=== PATIENT | male | born 1940 | race Caucasian/White ===

== ENCOUNTER 2016-04-04 09:10 | Inpatient (IN) | payer MEDICARE, BC ==
[2016-04-04] MEDS ORDERED: METHYLPRED SOD SUCC 125 MG/2 ML VIAL ONE (09:39)
[2016-04-04] MEDS ORDERED: DUONEB INH ONE ×2 (09:43)
[2016-04-04] MEDS ORDERED: NEB-ALBUTEROL 2.5 MG/3 ML INH ONE (09:43)
[2016-04-04] MEDS ORDERED: SODIUM CHLORIDE 0.9% 1,000 ML ONE (10:07)
[2016-04-04] MEDS ORDERED: ACETAMINOPHEN 325 MG TAB PO PRN (11:50)
[2016-04-04] MEDS ORDERED: BISACODYL EC 5 MG TAB PO PRN (11:50)
[2016-04-04] MEDS ORDERED: ALU/MAG/SIM 30 ML UDC PO PRN (11:50)
[2016-04-04] MEDS ORDERED: MAG HYDROX 30 ML UDC PO PRN (11:50)
[2016-04-04] MEDS ORDERED: ONDANSETRON 4 MG VIAL IV PRN (11:50)
[2016-04-04] MEDS ORDERED: SALINE FLUSH 10 ML FLUSH PRN (11:50)
[2016-04-04 13:29] VITALS: BP_SYST 142; BP_SYST 144; RESP 20; TEMP 97.8
[2016-04-04] MEDS ORDERED: NITROGLYCERIN SL 0.4 MG TAB SL SCH (13:35)
[2016-04-04] MEDS ORDERED: OPTIRAY 350 100 ML VIAL HMH IV ONE (14:44)
[2016-04-04] MEDS ORDERED: Furosemide 20 MG/2 ML VIAL IV ONE (15:35)
[2016-04-04] MEDS: Furosemide 20 MG TAB PO SCH (15:41)
[2016-04-04] MEDS: TRIAMTER/HCTZ 37.5/25MG TAB PO SCH (15:41)
[2016-04-04] MEDS: PANTOPRAZOLE 40 MG TAB PO SCH (15:41)
[2016-04-04] MEDS: METOPROLOL XL 50 MG TAB PO SCH (15:41)
[2016-04-04] MEDS: Aspirin 325 MG TAB PO SCH (15:41)
[2016-04-04] MEDS: CLOPIDOGREL 75 MG TAB PO SCH (15:41)
[2016-04-04] MEDS: METHYLPRED SOD SUCC 125 MG/2 ML VIAL IV SCH (15:42)
[2016-04-04] MEDS: DUONEB INH SCH ×3 (15:43→22:35)
[2016-04-04 15:47] VITALS: RESP 20
[2016-04-04 15:54] VITALS: BP_SYST 120; RESP 20; TEMP 98
[2016-04-04 15:55] VITALS: BP_SYST 97; RESP 20; TEMP 98
[2016-04-04] MEDS ORDERED: MISSING DOSE XX ONE ×2 (19:45→19:50)
[2016-04-04] MEDS: CEFTRIAXONE 1 GM in SODIUM CHLORIDE 0.9% 50 ML IV SCH (20:18)
[2016-04-04] MEDS: SALINE FLUSH 10 ML FLUSH SCH (20:18)
[2016-04-04] MEDS ORDERED: Furosemide 20 MG TAB PO SCH (21:00)
[2016-04-04] MEDS: AZITHROMYCIN 500 MG in SODIUM CHLORIDE 0.9% 250 ML IV SCH (21:04)
[2016-04-04 23:18] VITALS: BP_SYST 107; RESP 22; TEMP 98
[2016-04-05] VITALS (7 sets, daily range): BP systolic 98–172; RESP 16–20; TEMP 97.4–98.5
[2016-04-05] MEDS: METHYLPRED SOD SUCC 125 MG/2 ML VIAL IV SCH ×2 (00:27→08:30)
[2016-04-05] MEDS: DUONEB INH SCH ×6 (03:17→22:51)
[2016-04-05] MEDS: SODIUM CHLORIDE 0.9% FLUSH BAG 500 ML IV SCH (06:09)
[2016-04-05] MEDS: PANTOPRAZOLE 40 MG TAB PO SCH (06:09)
[2016-04-05] MEDS: SALINE FLUSH 10 ML FLUSH SCH ×2 (08:00→19:44)
[2016-04-05] MEDS: CEFTRIAXONE 1 GM in SODIUM CHLORIDE 0.9% 50 ML IV SCH (08:29)
[2016-04-05] MEDS: METOPROLOL XL 50 MG TAB PO SCH (08:30)
[2016-04-05] MEDS: TRIAMTER/HCTZ 37.5/25MG TAB PO SCH (08:30)
[2016-04-05] MEDS: CLOPIDOGREL 75 MG TAB PO SCH (08:30)
[2016-04-05] MEDS: Aspirin 325 MG TAB PO SCH (08:30)
[2016-04-05] MEDS: Furosemide 20 MG TAB PO SCH (08:31)
[2016-04-05] MEDS: AZITHROMYCIN 500 MG in SODIUM CHLORIDE 0.9% 250 ML IV SCH (09:48)
[2016-04-05] MEDS ORDERED: BENZONATATE 100 MG CAP PO PRN (09:55)
[2016-04-05] MEDS ORDERED: ASPIRIN EC 81 MG TAB PO SCH (10:35)
[2016-04-05] MEDS ORDERED: METHYLPRED SOD SUCC 125 MG/2 ML VIAL IV SCH (16:00)
[2016-04-05] MEDS: NEB-BUDESONIDE 0.5 MG INH SCH (18:46)
[2016-04-05] MEDS: NEB-BROVANA 15 MCG/2 ML INH SCH (18:46)
[2016-04-06] MEDS: DUONEB INH SCH ×4 (02:24→15:00)
[2016-04-06 03:40] VITALS: BP_SYST 107; RESP 20; TEMP 97.4
[2016-04-06] MEDS: PANTOPRAZOLE 40 MG TAB PO SCH (06:11)
[2016-04-06] MEDS: SODIUM CHLORIDE 0.9% FLUSH BAG 500 ML IV SCH (06:12)
[2016-04-06] MEDS: NEB-BUDESONIDE 0.5 MG INH SCH (06:42)
[2016-04-06] MEDS: NEB-BROVANA 15 MCG/2 ML INH SCH (06:42)
[2016-04-06 07:45] VITALS: BP_SYST 118; RESP 18; TEMP 97.4
[2016-04-06] MEDS: SALINE FLUSH 10 ML FLUSH SCH (08:18)
[2016-04-06] MEDS: CEFTRIAXONE 1 GM in SODIUM CHLORIDE 0.9% 50 ML IV SCH (08:19)
[2016-04-06] MEDS: METOPROLOL XL 50 MG TAB PO SCH (08:20)
[2016-04-06] MEDS: Furosemide 20 MG TAB PO SCH (08:20)
[2016-04-06] MEDS: TRIAMTER/HCTZ 37.5/25MG TAB PO SCH (08:21)
[2016-04-06] MEDS ORDERED: MISSING DOSE XX ONE (08:25)
[2016-04-06] MEDS: AZITHROMYCIN 500 MG in SODIUM CHLORIDE 0.9% 250 ML IV SCH (09:00)
[2016-04-06] MEDS ORDERED: Aspirin 325 MG TAB PO SCH (09:00)
[2016-04-06] MEDS ORDERED: CLOPIDOGREL 75 MG TAB PO SCH (09:00)
[2016-04-06] MEDS ORDERED: PREDNISONE 20 MG TAB PO SCH (09:00)
[2016-04-06 11:24] VITALS: BP_SYST 107; RESP 18; TEMP 97.6
[2016-04-06] MEDS ORDERED: CEFDINIR 300 MG CAP PO SCH (12:40)
[2016-04-06] MEDS ORDERED: AZITHROMYCIN 250 MG TAB PO SCH (12:40)
[2016-04-06 13:42] VITALS: BP_SYST 107; RESP 18; TEMP 97.6
== END 2016-04-06 15:04 | disposition home or self-care (01) | DRG 291 ==
LOC: ENRESERVDT → ENRESERVTM → ER 09:10 → EMR 11:49 → ENPENDDIS 11:49 → 4THE 13:09
PROVIDERS: ADMIT Family Medicine Addiction Medicine; ATTEND Family Medicine Addiction Medicine
CPT/HCPCS: 36415; 36600; 71010; 71260; 80048; 80051; 80053; 82330; 82553; 82803; 83735; 83880; 84484; 85025; 87040; 87071; 87077; 87186; 87278; 87299; 93005; 93306; 94640; 94799; 96361; 96374; 99223; 99232; 99233; 99239